=== PATIENT | female | born 2000 | race Caucasian/White ===

== ENCOUNTER 2022-08-30 08:37 | Emergency (ER) | payer MEDICAID ==
[~2022-08-30] VITALS: Ht 154.9 cm; Wt 56.0 kg
[2022-08-30 09:32] LABS: CLARITY URINE CLEAR (CLEAR); COLOR URINE YELLOW (YELLOW); KETONES URINE NEGATIVE (NEGATIVE); LEUKOCYTE ESTERASE URINE 3+ (NEGATIVE); NITRITE URINE NEGATIVE (NEGATIVE); OCCULT BLOOD URINE 1+ (NEGATIVE); PH URINE 5.5 (4.5-8.0); PROTEIN URINE NEGATIVE (NEGATIVE); SPECIFIC GRAVITY URINE 1.011 (1.005-1.030); UROBILINOGEN URINE 0.2 E.U./dL (0.2-1.0)
[2022-08-30] MEDS ORDERED: TOPUD PO (10:00)
[2022-08-30] MEDS ORDERED: NITR100C PO (10:00)
[2022-08-30 10:18] LABS: BASOPHILS % 0.2 % (0.0-2.0); EOSINOPHILS % 0.3 % (0.0-5.0); HEMATOCRIT. 41.5 % (36.0-48.0); HEMOGLOBIN. 14.6 g/dL (12.0-16.0); LYMPHOCYTES % 11.9 % (20.0-50.0); MEAN CORPUSCULAR VOLUME 93.7 fL (81.0-99.0); MEAN PLATELET VOLUME 8.2 fl (7.4-10.4); MONOCYTES % 6.7 % (2.0-8.0); NEUTROPHILS % 80.9 % (40.0-76.0); PLATELET 302 x1000/uL (130-400); RED BLOOD CELL COUNT 4.43 mill/uL (4.2-5.4); RED CELL DISTRIBUTION WIDTH 13.2 % (11.6-14.6)
[2022-08-30 10:24] VITALS: BP 113/72; PULSE 99; RESP 18; TEMP 98.1
[2022-08-30 10:26] LABS: CHLORIDE 106 mEq/L (98-107)
== END 2022-08-30 10:26 | disposition home or self-care (01) ==
LOC: ER 08:37
DX: N39.0 Urinary tract infection, site not specified (principal); Z88.1 Allergy status to other antibiotic agents
CPT/HCPCS: 36415; 80053; 81003; 81025; 85025; 87186; 99283

== ENCOUNTER 2022-09-01 10:53 | Emergency (ER) | payer MEDICAID ==
[~2022-09-01] VITALS: Ht 154.9 cm; Wt 57.0 kg
[~2022-09-01 10:53] MED LIST: NITR100C PO; TOPUD PO
[2022-09-01 11:09] VITALS: O2SAT 99
[2022-09-01 11:27] LABS: BASOPHILS % 0.3 % (0.0-2.0); HEMATOCRIT. 40.1 % (36.0-48.0); LYMPHOCYTES % 14.7 % (20.0-50.0); MEAN CORPUSCULAR HEMOGLOBIN 32.6 pg (28.0-32.0); MEAN CORPUSCULAR HGB CONC 34.9 g/dL (31.0-37.0); MEAN CORPUSCULAR VOLUME 93.4 fL (81.0-99.0); MEAN PLATELET VOLUME 7.9 fl (7.4-10.4); MONOCYTES % 10.2 % (2.0-8.0); NEUTROPHILS % 74.8 % (40.0-76.0); PLATELET 291 x1000/uL (130-400); RED BLOOD CELL COUNT 4.29 mill/uL (4.2-5.4); RED CELL DISTRIBUTION WIDTH 13.2 % (11.6-14.6)
[2022-09-01 11:33] LABS: CLARITY URINE CLEAR (CLEAR); COLOR URINE YELLOW (YELLOW); GLUCOSE URINE NEGATIVE (NEGATIVE); KETONES URINE NEGATIVE (NEGATIVE); LEUKOCYTE ESTERASE URINE NEGATIVE (NEGATIVE); NITRITE URINE NEGATIVE (NEGATIVE); OCCULT BLOOD URINE NEGATIVE (NEGATIVE); PH URINE 5.5 (4.5-8.0); PROTEIN URINE NEGATIVE (NEGATIVE); SPECIFIC GRAVITY URINE 1.004 (1.005-1.030)
[2022-09-01] MEDS ORDERED: KETOROLAC 15MG/ML VIAL IV ONE (11:45)
[2022-09-01] MEDS ORDERED: SODIUM CHLORIDE 0.9% 1,000 ML IV ONE (11:45)
[2022-09-01 11:48] LABS: CHLORIDE 104 mEq/L (98-107); INDEX HEMOLYSI 1 (1-3); INDEX ICTERIC 1 (1-4); INDEX LIPEMIC 1 (1-3); POTASSIUM 3.1 mEq/L (3.5-5.1); SODIUM 138 mEq/L (136-145)
[2022-09-01 11:56] LABS: ALANINE AMINOTRANSFERASE 22 IU/L (13-61); ALBUMIN 3.6 g/dL (3.4-5.0); ASPARTATE AMINOTRANSFERASE 14 IU/L (15-37); BILIRUBIN TOTAL 1.2 mg/dL (0.1-1.0); CALCIUM 9.4 mg/dL (8.5-10.1); CARBON DIOXIDE 30 mEq/L (21-32); CREATININE 0.6 mg/dL (0.6-1.3); GLUCOSE 100 mg/dL (70-105); PROTEIN TOTAL 8.5 g/dL (6.0-8.3); UREA NITROGEN BLOOD 7 mg/dL (7-21)
[2022-09-01] MEDS ORDERED: ONDA4TAB50 MT (12:56)
[2022-09-01] MEDS ORDERED: IBUP-2029 MT (12:56)
[2022-09-01 13:00] VITALS: BP 124/80; PULSE 95; RESP 18; TEMP 98.4
== END 2022-09-01 13:43 | disposition home or self-care (01) ==
LOC: ER 12:22
DX: K82.4 Cholesterolosis of gallbladder (principal); R10.11 Right upper quadrant pain; R11.2 Nausea with vomiting, unspecified; Z88.1 Allergy status to other antibiotic agents
CPT/HCPCS: 80053; 81003; 81025; 83690; 85025; 36415; 76705; 96361; 96374; 99285; J1885; J7030; Z7610 ×5

== ENCOUNTER 2024-05-26 08:51 | Emergency (ER) | payer MEDICAID, MEDICARE ==
[~2024-05-26] VITALS: Ht 154.9 cm; Wt 67.0 kg
[~2024-05-26 08:51] MED LIST changes: +IBUP-2029 MT; +ONDA4TAB50 MT
[2024-05-26 09:18] VITALS: O2SAT 98
[2024-05-26 10:43] LABS: BASOPHILS % 0.2 % (0.0-2.0); EOSINOPHILS % 1.4 % (0.0-5.0); HEMOGLOBIN. 14.3 g/dL (12.0-16.0); LYMPHOCYTES % 21.9 % (20.0-50.0); MEAN CORPUSCULAR HEMOGLOBIN 31.7 pg (28.0-32.0); MEAN CORPUSCULAR HGB CONC 34.1 g/dL (31.0-37.0); MEAN PLATELET VOLUME 8.1 fl (7.4-10.4); MONOCYTES % 5.9 % (2.0-8.0); NEUTROPHILS % 70.6 % (40.0-76.0); PLATELET 322 x1000/uL (130-400); RED BLOOD CELL COUNT 4.51 mill/uL (4.2-5.4); RED CELL DISTRIBUTION WIDTH 13.5 % (11.6-14.6); WHITE BLOOD COUNT 9.9 x1000/uL (4.5-11.0)
[2024-05-26 10:45] LABS: CHLORIDE 102 mEq/L (98-107); POTASSIUM 3.6 mEq/L (3.5-5.1); SODIUM 138 mEq/L (136-145)
[2024-05-26 10:46] LABS: CARBON DIOXIDE 27 mEq/L (21-32)
[2024-05-26 10:47] LABS: CALCIUM 9.6 mg/dL (8.7-10.4)
[2024-05-26 10:51] LABS: CREATININE 0.7 mg/dL (0.6-1.0)
[2024-05-26 10:52] LABS: GLUCOSE 97 mg/dL (70-105); UREA NITROGEN BLOOD 10 mg/dL (9-23)
[2024-05-26 10:54] LABS: B-HCG QUANTITATIVE 602 mIU/mL (<3)
[2024-05-26 11:59] LABS: CLARITY URINE CLOUDY (CLEAR); COLOR URINE ORANGE (YELLOW); GLUCOSE URINE NEGATIVE (NEGATIVE); KETONES URINE NEGATIVE (NEGATIVE); LEUKOCYTE ESTERASE URINE TRACE (NEGATIVE); NITRITE URINE NEGATIVE (NEGATIVE); OCCULT BLOOD URINE 3+ (NEGATIVE); PH URINE 6.5 (4.5-8.0); PROTEIN URINE TRACE (NEGATIVE); SPECIFIC GRAVITY URINE 1.008 (1.005-1.030); UROBILINOGEN URINE 0.2 E.U./dL (0.2-1.0)
[2024-05-26 12:35] LABS: RBC URINE 0-2 /hpf (0-2); SQUAMOUS EPITHELIAL CELL URINE 1+ /lpf (RARE/1+); WBC URINE 0-2 /hpf (0-2)
[2024-05-26] MEDS ORDERED: CEPH500C2 MT (12:36)
[2024-05-26 12:55] VITALS: BP 106/70; PULSE 78; RESP 18; TEMP 36.8; O2SAT 98
[2024-05-26 13:12] LABS: BACTERIA URINE NONE SEEN
== END 2024-05-26 12:59 | disposition home or self-care (01) ==
LOC: ER 08:51
DX: O03.38 Urinary tract infection following incomplete spontaneous abortion (principal); O03.9 Complete or unspecified spontaneous abortion without complication; Z88.0 Allergy status to penicillin
CPT/HCPCS: 36415; 76801; 80048; 81003; 84702; 85025; 86850; 86900; 88305; 99284

== ENCOUNTER 2024-05-28 14:08 | Emergency (ER) | payer MEDICARE ==
[~2024-05-28] VITALS: Ht 154.9 cm; Wt 67.1 kg
[~2024-05-28 14:08] MED LIST changes: +CEPH500C2 MT
[2024-05-28 14:16] VITALS: BP 146/87; TEMP 36.7; O2SAT 99
[2024-05-28 14:17] VITALS: PULSE 102; RESP 18; O2SAT 98
[2024-05-28] MEDS: ACETAMINOPHEN 325MG TABLET PO ONE (14:40)
[2024-05-28 15:05] LABS: CARBON DIOXIDE 27 mEq/L (21-32); CHLORIDE 104 mEq/L (98-107); POTASSIUM 3.7 mEq/L (3.5-5.1); SODIUM 139 mEq/L (136-145)
[2024-05-28 15:07] LABS: CALCIUM 9.7 mg/dL (8.7-10.4)
[2024-05-28 15:11] LABS: CREATININE 0.6 mg/dL (0.6-1.0); GLUCOSE 93 mg/dL (70-105); UREA NITROGEN BLOOD 10 mg/dL (9-23)
[2024-05-28 15:14] LABS: BASOPHILS % 0.2 % (0.0-2.0); EOSINOPHILS % 0.8 % (0.0-5.0); HEMATOCRIT. 42.1 % (36.0-48.0); HEMOGLOBIN. 14.6 g/dL (12.0-16.0); LYMPHOCYTES % 36.4 % (20.0-50.0); MEAN CORPUSCULAR HEMOGLOBIN 32.6 pg (28.0-32.0); MEAN CORPUSCULAR HGB CONC 34.6 g/dL (31.0-37.0); MEAN CORPUSCULAR VOLUME 94.3 fL (81.0-99.0); MEAN PLATELET VOLUME 8.2 fl (7.4-10.4); MONOCYTES % 7.3 % (2.0-8.0); NEUTROPHILS % 55.3 % (40.0-76.0); PLATELET 361 x1000/uL (130-400); RED BLOOD CELL COUNT 4.46 mill/uL (4.2-5.4); RED CELL DISTRIBUTION WIDTH 13.6 % (11.6-14.6); WHITE BLOOD COUNT 8.5 x1000/uL (4.5-11.0)
[2024-05-28 15:29] LABS: B-HCG QUANTITATIVE 189 mIU/mL (<3)
== END 2024-05-28 17:18 | disposition home or self-care (01) ==
LOC: ER 14:08
DX: O03.88 Urinary tract infection following complete or unspecified spontaneous abortion (principal); N89.8 Other specified noninflammatory disorders of vagina; Z88.0 Allergy status to penicillin; Z3A.01 Less than 8 weeks gestation of pregnancy
CPT/HCPCS: 36415; 76801; 80048; 84702; 85025; 99284